=== PATIENT | female | born 1980 | race Caucasian/White ===

== ENCOUNTER → 2018-05-19 | Outpatient (CLI) | payer MEDICAID | LOC: FIMAGING 10:18 | PROVIDERS: ATTEND Obstetrics & Gynecology | DX: O09.512 Supervision of elderly primigravida, second trimester (principal); O36.62X0 Maternal care for excessive fetal growth, second trimester, not applicable or unspecified; O26.891 Other specified pregnancy related conditions, first trimester; D35.2 Benign neoplasm of pituitary gland; Z3A.19 19 weeks gestation of pregnancy ==

== ENCOUNTER → 2018-09-11 | Outpatient (CLI) | payer MEDICAID | LOC: FIMAGING 11:53 | PROVIDERS: ATTEND Obstetrics & Gynecology | DX: O09.523 Supervision of elderly multigravida, third trimester (principal); O09.293 Supervision of pregnancy with other poor reproductive or obstetric history, third trimester; Z3A.36 36 weeks gestation of pregnancy ==